=== PATIENT | male | born 1985 | race Caucasian/White ===

== ENCOUNTER 2022-03-18 16:42 | Emergency (ER) | payer BC ==
[2022-03-18] MEDS ORDERED: ROBAXIN 750 MG750 MG PO (20:41)
[2022-03-18] MEDS ORDERED: IBU600 MG PO (20:41)
== END 2022-03-18 20:51 | disposition home or self-care (01) ==
LOC: ER1 16:42
DX: S13.9XXA Sprain of joints and ligaments of unspecified parts of neck, initial encounter (principal); F17.210 Nicotine dependence, cigarettes, uncomplicated; X58.XXXA Exposure to other specified factors, initial encounter
CPT/HCPCS: 70360; 71045; 73030; 93005; 99283